=== PATIENT | female | born 1990 | race Caucasian/White ===

== ENCOUNTER → 2016-12-07 | Outpatient (CLI) | payer OTHER ==
[~2016-12-07] MED LIST: CALC600T21 PO; EFFE75CA75 PO; PRENTAB62 PO
--- NOTE | 2016-12-08 04:26 | REP ---
Clinical: Anatomical evaluation. Comparison: 11/11/2016 . Findings: Examination demonstrates a single live intrauterine in cephalic presentation. motion is identified by technologist. Placenta is noted posteriorly and grade zero without evidence for placenta previa or abruption. Amniotic fluid volume is normal. Cervix measures 2.6 cm in length and appears closed. No evidence for nuchal cord. Gestational age by LMP 24 weeks 1 day with XUAN 03/28/2017 . Gestational age by current measurements 24 weeks 4 days with XUAN 03/25/2017 . FHR equals 144 beats per minute. Estimated weight 735 grams ( 65th percentile). Anatomical assessment demonstrates normal structures including cranium, cavum, cerebellum/posterior fossa, facial features, lungs, four-chamber heart/ventricular outflow tracts, diaphragm, stomach, cord insertion/three-vessel cord, kidneys/bladder, spine, and extremities. Impression: Single live intrauterine in cephalic presentation demonstrating appropriate interval growth. In conjunction with prior examination anatomical assessment is complete and normal. Signed by Ed Gonzales MD 12/08/2016 04:18 A
== END ==
LOC: M RAD 12:30
PROVIDERS: ATTEND Obstetrics & Gynecology
DX: Z34.82 Encounter for supervision of other normal pregnancy, second trimester (principal); Z3A.24 24 weeks gestation of pregnancy

== ENCOUNTER → 2016-12-23 | Outpatient (CLI) | payer OTHER ==
[2016-12-23 12:49] LABS: MEAN CORPUSCULAR HEMOGLOBIN 26.7 pg (27.0-33.0); MEAN CORPUSCULAR HGB CONC 32.9 g/dl (32.0-36.5); MEAN CORPUSCULAR VOLUME 81.1 fl (80.0-96.0); RED CELL DISTRIBUTION WIDTH 14.8 % (11.5-14.5)
[2016-12-25 15:22] LABS: WHITE BLOOD COUNT 9.4 K/mm3 (4.0-10.0)
== END ==
LOC: M WUC 09:05
PROVIDERS: ATTEND Advanced Practice Midwife
DX: Z34.82 Encounter for supervision of other normal pregnancy, second trimester (principal)

== ENCOUNTER → 2017-01-12 | Outpatient (REF) | payer OTHER | LOC: M LAB REF 12:16 | PROVIDERS: ATTEND Obstetrics & Gynecology | DX: Z3A.28 28 weeks gestation of pregnancy (principal) ==

== ENCOUNTER 2017-02-07 17:09 | Outpatient (CLI) | payer OTHER ==
[~2017-02-07] VITALS: Ht 154.9 cm; Wt 98.0 kg
[2017-02-07 17:24] VITALS: BP 120/68
== END 2017-02-07 18:00 | disposition home or self-care (01) ==
LOC: M LDO 17:09
PROVIDERS: ATTEND Advanced Practice Midwife
DX: O26.893 Other specified pregnancy related conditions, third trimester (principal); Z3A.33 33 weeks gestation of pregnancy

== ENCOUNTER → 2017-03-02 | Outpatient (REF) | payer OTHER | LOC: M LAB REF 12:30 | PROVIDERS: ATTEND Advanced Practice Midwife | DX: Z34.83 Encounter for supervision of other normal pregnancy, third trimester (principal) ==

== ENCOUNTER 2017-03-25 05:15 | Inpatient (IN) | payer OTHER ==
[~2017-03-25] VITALS: Ht 152.4 cm; Wt 95.0 kg
[~2017-03-25 05:15] MED LIST changes: +TUMS500C PO
[2017-03-25 05:30] VITALS: BP 130/80
[2017-03-25] MEDS ORDERED: BICITRA 30ML SOLN UDC PO ONE ×2 (05:45→22:45)
[2017-03-25] MEDS ORDERED: LR 800 ML IV ONE (05:45)
[2017-03-25] MEDS ORDERED: LR 1,000 ML IV SCH ×2 (06:30→09:05)
[2017-03-25 06:35] LABS: BASO % 0.3 % (0.0-1.0); EOS # 0.1 K/mm3 (0.0-0.50); LARGE UNSTAINED CELL # 0.2 K/mm3 (0.0-0.4); LYMPH # 1.7 K/mm3 (1.5-6.5); LYMPH % 15.2 % (24.0-44.0); MEAN CORPUSCULAR HEMOGLOBIN 24.6 pg (27.0-33.0); MEAN CORPUSCULAR VOLUME 76.8 fl (80.0-96.0); MONO # 0.4 K/mm3 (0.0-0.8); MONO % 4.3 % (0.0-5.0); NEUTROPHILS # 7.8 K/mm3 (1.8-7.7); NEUTROPHILS % 77.2 % (36.0-66.0); PLATELET COUNT, AUTOMATED 240 k/mm3 (150-450); RED CELL DISTRIBUTION WIDTH 15.8 % (11.5-14.5); WHITE BLOOD COUNT 10.1 K/mm3 (4.0-10.0)
[2017-03-25] MEDS ORDERED: MORPHINE PRES-FREE INJ 10 MG/10 ML VIAL (J2274) As Ordered ONE (07:34)
[2017-03-25] MEDS ORDERED: ONDANSETRON 4MG/2ML VIAL (J2405) As Ordered ONE (07:35)
[2017-03-25] MEDS ORDERED: OXYTOCIN INJ 10 UNITS/ML VIAL (J2590) As Ordered ONE (07:35)
[2017-03-25] MEDS ORDERED: GLYCOPYRROLATE INJ 0.2 MG/ML 2 ML VIAL As Ordered ONE (08:18)
[2017-03-25] MEDS ORDERED: ePHEDrine SULFATE 25 MG/5 ML(5MG/ML) SYRINGE As Ordered ONE ×2 (08:18→08:31)
[2017-03-25] MEDS ORDERED: METOCLOPRAMIDE INJ 10MG/2ML VIAL (J2765) IV PRN (08:21)
[2017-03-25] MEDS ORDERED: NALOXONE INJ 0.4 MG/1 ML VIAL (J2310) IV PRN ×2 (08:21)
[2017-03-25] MEDS ORDERED: ONDANSETRON 4MG/2ML VIAL (J2405) IV PRN ×2 (08:21→09:45)
[2017-03-25] MEDS ORDERED: NALBUPHINE HCL 10 MG/ML AMP (J2300) IV PRN (08:21)
[2017-03-25] MEDS ORDERED: KETOROLAC 60 MG/2 ML VIAL (J1885) As Ordered ONE (08:38)
[2017-03-25 08:43] LABS: CORD GAS ABE A -2.3; CORD GAS HCO3 A 24.9 MEQ/L; CORD GAS O2 SAT A 35.7 %; CORD GAS PCO2 A 52.1 mmHg; CORD GAS PH A 7.297 UNITS; CORD GAS PO2 A 19.6 mmHg; CORD GAS TCO2 A 26.5 MEQ/L
[2017-03-25 08:44] LABS: CORD GAS ABE V -1.4; CORD GAS HCO3 V 23.2 MEQ/L; CORD GAS O2 SAT V 73.7 %; CORD GAS PCO2 V 38.9 mmHg; CORD GAS PH V 7.394 UNITS; CORD GAS PO2 V 33.2 mmHg; CORD GAS SBC V 22.7 MEQ/L; CORD GAS TCO2 V 24.4 MEQ/L
[2017-03-25] MEDS ORDERED: MEASLES,MUMPS,RUBELLA VACCINE INJ (MMR-II) (90707) SC SCH (09:15)
[2017-03-25] MEDS ORDERED: RHOGAM 300 MCG (1500 IU) INJ (J2790) IM SCH (09:15)
[2017-03-25] MEDS ORDERED: PERCOCET 5MG/325MG TAB PO PRN (09:45)
[2017-03-25] MEDS: fentaNYL 100 MCG/2 ML INJECTION (J3010) IV PRN ×2 (10:07→10:15)
[2017-03-25 11:15] VITALS: BP 141/62
[2017-03-25 11:53] VITALS: BP 125/69
[2017-03-25 13:09] VITALS: BP 135/69
[2017-03-25] MEDS: NORCO, ANEXSIA 5/325MG TABLET (HYDROcodone/ACETAMINOPHEN) PO PRN ×2 (13:44→23:29)
[2017-03-25 14:08] VITALS: BP 115/59
--- NOTE | 2017-03-25 14:20 | RO ---
DATE OF PROCEDURE: 03/25/2017 Sera is a 27-year-old female 6, para 3 0-3 with a history of three prior sections being admitted for elective repeat section. The patient also desires permanent tubal sterilization. After counseling in the office we did proceed did agree to proceed with a repeat section, bilateral tubal ligation and possible revision of old scar. PREOPERATIVE DIAGNOSIS: 1. Term for an elective repeat section times four. 2. Desires permanent tubal sterilization. POSTOPERATIVE DIAGNOSIS: 1. Term for an elective repeat section times four. 2. Desires permanent tubal sterilization. 3. Extensive bladder adhesions to the lower uterine segment. PROCEDURE: 1. Bilateral tubal ligation using Filshie clip. 2. Lysis of adhesion. 3. Retrograde filling of the bladder. GUM SPRAYER: Na Julian ANESTHESIA: Spinal. COMPLICATIONS: None. ESTIMATED BLOOD LOSS: 500 mL. FINDINGS: Live female in right occiput transverse position. scores 9 and 9. weight 8 pounds 1 ounce. Normal-appearing placenta with a very thin lower uterine segment and a window at the left side of the uterus. After obtaining informed consent the patient was taken to the operating room where spinal anesthetic was found to be adequate. She was then draped and prepped usual sterile fashion in supine position. At this point, a elliptical incision was made over her old scar, this was carried down to the fascia. The old scar was removed. The incision was carried through laterally. The inferior aspect of the fascia were grasped with Leyla clamps, tented off and dissected off the rectus muscles sharply. The superior aspect was dissected off in a similar fashion. Rectus muscles midline fashion. Perineum identified. Peritoneal cavity entered bluntly. Superior and inferior dissection of the peritoneum was then done with good visualization of the bladder. At this point a Mobius skin retractor was placed at the large lower uterine segment window was noted as well as the bladder adherent to the lower uterine segment and incision was made high in the lower uterine segment. The infant was delivered in atraumatic fashion. Nose and mouth bulb suctioned. Cord doubly clamped and cut and infant was handed to the waiting warmer. Cord blood and cord gas were sent. Placenta removed manually. Uterus cleared of all clot and debris. Uterine incision was then repaired in two separate layers of 0 Vicryl suture. The bladder was found to be very adherent to the lower uterine segment. This was taken down with a series of sharp and blunt dissection. After freeing the bladder up we then retrograde filled the bladder with normal saline to rule out any evidence of laceration to the bladder, none were found, bladder was within normal limit. At this point, attention was turned to the fallopian tube which the fimbriated end was identified and the Filshie clip was applied approximately 2-3 cm away from the cornual end of each tube. Pelvis copiously irrigated with normal saline and suctioned out. Attention turned to the peritoneum which was closed using 2-0 Vicryl in a running fashion. Fascia closed in two separate segment of 0 Vicryl sutures . Superficial bleeders coagulated and the skin was reapproximated in subcuticular fashion using 3-0 Vicryl in a Daniel. Steri-Strips placed. The patient tolerated procedure well. She was then transferred to recovery room in stable condition.
[2017-03-25] MEDS: IBUPROFEN 800 MG TAB PO SCH (17:06)
[2017-03-25 18:43] VITALS: BP 129/74
[2017-03-26] MEDS: IBUPROFEN 800 MG TAB PO SCH ×3 (01:00→17:55)
[2017-03-26 01:38] VITALS: BP 113/55
[2017-03-26 06:06] VITALS: BP 115/54
[2017-03-26] MEDS: NORCO, ANEXSIA 5/325MG TABLET (HYDROcodone/ACETAMINOPHEN) PO PRN ×4 (06:31→20:16)
[2017-03-26 06:54] LABS: MEAN CORPUSCULAR HGB CONC 31.8 g/dl (32.0-36.5); MEAN CORPUSCULAR VOLUME 78.6 fl (80.0-96.0); WHITE BLOOD COUNT 8.9 K/mm3 (4.0-10.0)
[2017-03-26] MEDS: PRENATAL VITAMIN TAB PO SCH (08:18)
[2017-03-26] MEDS ORDERED: PERCOCET PO (08:40)
[2017-03-26 10:38] VITALS: BP 129/68
[2017-03-26 14:00] VITALS: BP 139/69
[2017-03-26 18:00] VITALS: BP 129/82
[2017-03-26 22:00] VITALS: BP 129/61
[2017-03-27] MEDS: IBUPROFEN 800 MG TAB PO SCH ×3 (01:00→17:07)
[2017-03-27] MEDS: NORCO, ANEXSIA 5/325MG TABLET (HYDROcodone/ACETAMINOPHEN) PO PRN ×3 (05:37→15:16)
[2017-03-27 05:48] VITALS: BP 138/71
[2017-03-27] MEDS: PRENATAL VITAMIN TAB PO SCH (08:18)
--- NOTE | 2017-03-27 11:09 | IPNPDOC ---
Progress Note Date of Service The patient was seen on 03/27/17 at 11:03. Progress Note SUBJECTIVE: Patient reports that she would like to stay for 1 more day. C/o pain in her tailbone and back. Voiding without difficulty. Ambulating. without difficulty. OBJECTIVE: PHYSICAL EXAMINATION: VITAL SIGNS: Please see below. LUNGS: Regular rate. No use of accessory muscles. BREAST EXAMINATION: Soft and nontender. SECTION INCISION: Edges approximated. No drainage. Steri strips present. EXTREMITIES: Bilateral lower extremities, generalized edema, no erythema. CURRENT LABS: Please see below. ASSESSMENT: Day 2 Postoperative PLAN: Continue with supportive nursing care. Anticipate discharge tomorrow. Encouraged patient to change positions frequently. VS, I&O, 24H, Fishbone Vital Signs/I&O Vital Signs Date Time Temp Pulse Resp B/P (MAP) Pulse Ox O2 Delivery O2 Flow Rate FiO2 03/27/17 10:42 18 03/27/17 09:41 Room Air 03/27/17 05:48 97.2 91 138/71 (93) 03/26/17 22:00 100 I&O- Last 24 Hours up to 6 AM 03/27/17 06:00 Intake Total 600 ml Balance 600 ml LYNETTE BURDICK CNM March 27, 2017 11:09
[2017-03-27 18:12] VITALS: BP 126/84
[2017-03-28] MEDS: IBUPROFEN 800 MG TAB PO SCH ×2 (00:44→07:58)
[2017-03-28 05:42] VITALS: BP 134/70
[2017-03-28] MEDS: NORCO, ANEXSIA 5/325MG TABLET (HYDROcodone/ACETAMINOPHEN) PO PRN ×2 (06:19→10:17)
[2017-03-28] MEDS: PRENATAL VITAMIN TAB PO SCH (07:58)
--- NOTE | 2017-03-28 10:27 | DS.PDOC ---
Discharge Summary General Date of Admission March 25, 2017 at 05:15 Date of Discharge 03/28/2017 Attending Physician: Andreas Liang DO Discharge Summary PROCEDURES PERFORMED DURING STAY: Repeat low-transverse section with permanent tubal sterilization. ADMITTING DIAGNOSES: 1. term . 2. Elective repeat section. 3. Desires permanent tubal sterilization. DISCHARGE DIAGNOSES: 1. Day 3 postoperative. COMPLICATIONS/CHIEF COMPLAINT: Previous Section. HISTORY OF PRESENT ILLNESS: Patient is a 27 year old female who is now a with an XUAN of 03/28/17. She was scheduled for a repeat section with a history of 3 prior sections. She desired permanent sterilization. She initiated care in her first trimester at [facility]. Her has been uncomplicated. She does have a history of eclampsia with her 1st in 2010. She also has been diagnosed with a brain tumor, which has not been causing any harm or changes to the patient. DISCHARGE MEDICATIONS: [place] sent to pharmacy from office. Motrin, Tylenol, PNV OTC with no scripts. ALLERGIES: Please see below. PHYSICAL EXAMINATION ON DISCHARGE: VITAL SIGNS: Please see below. RESPIRATORY EXAMINATION: Rate regular. No use of accessory muscles. ABDOMINAL EXAMINATION: Low transverse incision: edges approximated. No drainage. Clean. Steri strips present. EXTREMITIES: Bilateral lower extremities with generalized edema. LABORATORY DATA: Please see below. ACTIVITY: As tolerated. DIET: Regular. DISCHARGE INSTRUCTIONS: 1. Follow up with scheduled appointments, which have already been schedule for patient. 2. Reviewed mastitis, endometritis, hemorrhage, infection at incision site, DVT , pulmonary embolism, pain management, pelvic rest, and breast care with patient. She is to contact office with any of these symptoms or complications. DISCHARGE CONDITION: Stable. Vital Signs/I&Os Vital Signs Date Time Temp Pulse Resp B/P (MAP) Pulse Ox O2 Delivery O2 Flow Rate FiO2 03/28/17 07:07 16 03/28/17 05:42 98.3 87 134/70 (91) 03/27/17 15:16 Room Air 03/26/17 22:00 100 Discharge Medications Scheduled PRN Calcium Carbonate (Tums) 500 Mg Chw, 500 MG PO PRN PRN for HEARTBURN, (Reported) Oxycodone/Acetaminophen (Percocet 5MG/325MG Tablet) 1 Tab Tab, 1 TAB PO Q4HP PRN for ABDOMINAL PAIN Allergies Coded Allergies: Horse Allergy (Verified Allergy, Intermediate, 03/25/17) Rabbit Epithelium (Verified Allergy, Intermediate, 03/25/17) LYNETTE BURDICK CNM March 28, 2017 10:27
[2017-03-28] MEDS ORDERED: PREN27TA3 PO (10:40)
[2017-03-28] MEDS ORDERED: MOTR200T44 PO (10:40)
== END 2017-03-28 11:37 | disposition home or self-care (01) | DRG 540 ==
LOC: M LDI 05:15 → M OBS 10:29
PROVIDERS: ADMIT Obstetrics & Gynecology; ATTEND Obstetrics & Gynecology
PROC: 0UL70DZ Occlusion of Bilateral Fallopian Tubes with Intraluminal Device, Open Approach (ICD-10-PCS; 2017-03-25)
PROC: 10D00Z1 Extraction of Products of Conception, Low, Open Approach (ICD-10-PCS; principal; 2017-03-25 07:30)
DX: O34.211 Maternal care for low transverse scar from previous cesarean delivery (principal); Z37.0 Single live birth; Z3A.39 39 weeks gestation of pregnancy; D49.6 Neoplasm of unspecified behavior of brain

== ENCOUNTER 2017-07-05 08:43 | Emergency (ER) | payer OTHER ==
[~2017-07-05] VITALS: Ht 154.9 cm; Wt 84.1 kg
[~2017-07-05 08:43] MED LIST changes: -CALC600T21 PO; +CALC600T60 PO; +MOTR200T44 PO; +PERCOCET PO; +PREN27TA3 PO
[2017-07-05] MEDS ORDERED: KETOROLAC 30 MG/ML VIAL (J1885) IV ONE (09:30)
[2017-07-05] MEDS ORDERED: METOCLOPRAMIDE INJ 10MG/2ML VIAL (J2765) IV ONE (09:30)
[2017-07-05 09:56] LABS: BASO % 0.4 % (0.0-1.0); EOS # 0.1 K/mm3 (0.0-0.50); LARGE UNSTAINED CELL # 0.1 K/mm3 (0.0-0.4); LARGE UNSTAINED CELL % 1.7 % (0.0-4.0); LYMPH # 1.4 K/mm3 (1.5-6.5); LYMPH % 23.9 % (24.0-44.0); MEAN CORPUSCULAR HEMOGLOBIN 23.6 pg (27.0-33.0); MEAN CORPUSCULAR HGB CONC 32.1 g/dl (32.0-36.5); MEAN CORPUSCULAR VOLUME 73.5 fl (80.0-96.0); MONO # 0.2 K/mm3 (0.0-0.8); MONO % 4.2 % (0.0-5.0); NEUTROPHILS # 3.8 K/mm3 (1.8-7.7); NEUTROPHILS % 68.8 % (36.0-66.0); PLATELET COUNT, AUTOMATED 230 k/mm3 (150-450); RED CELL DISTRIBUTION WIDTH 15.9 % (11.5-14.5); WHITE BLOOD COUNT 5.6 K/mm3 (4.0-10.0)
[2017-07-05 10:25] LABS: ANION GAP 11 MEQ/L (8-16); BLOOD UREA NITROGEN 13 MG/DL (7-18); CALCIUM LEVEL 8.7 MG/DL (8.5-10.1); CARBON DIOXIDE LEVEL 25 MEQ/L (21-32); CHLORIDE LEVEL 105 MEQ/L (98-107); CREATININE FOR GFR 1.02 MG/DL (0.55-1.02); GLOMERULAR FILTRATION RATE > 60.0 (>60); GLUCOSE, FASTING 102 MG/DL (70-105); HCG, SERUM QUANTITATIVE < 1.0 MIU/ML; POTASSIUM SERUM 3.9 MEQ/L (3.5-5.1); SODIUM LEVEL 141 MEQ/L (136-145)
[2017-07-05] MEDS ORDERED: REGL10TA6 PO (11:31)
[2017-07-05] MEDS ORDERED: IBUP-1022 PO (11:31)
[2017-07-05] MEDS ORDERED: NORCOTAB PO (11:31)
[2017-07-05 11:50] VITALS: BP 119/68
--- NOTE | 2017-07-05 12:27 | REP ---
CT ABDOMEN PELVIS WITHOUT IV OR ORAL CONTRAST: Renal stone protocol. HISTORY: Left flank pain. COMPARISON STUDY: October 21, 2015. FINDINGS: Preliminary digital regional safety manager radiograph demonstrates tubal ligation clamps bilaterally in the pelvis. Bowel gas pattern is normal. The lung bases are clear. No pleural effusion or upper abdominal ascites seen. The liver and the spleen are normal in size homogeneous in texture. Gallbladder and the pancreas are unremarkable. No adrenal lesion is seen. There is moderate hydronephrosis and hydroureter affecting the left side. The hydronephrosis is traced into the pelvis several centimeters above the left ureteral vesicle junction where there is a 3 mm distal ureteral calculus. There are bilateral intrarenal calculi. In the left mid kidney, there is a 5 mm calculus. In the right kidney lower pole there is a 3 mm calculus. No right-sided hydronephrosis is seen. Tubal ligation clamps are seen in the pelvis. No abdominal wall defect is seen. No bony destructive lesion is appreciated. IMPRESSION: Moderate left-sided hydronephrosis and hydroureter. There is evidence of a 3 mm left distal ureteral calculus several centimeters above the ureterovesical junction. There is bilateral intrarenal nephrolithiasis. No other significant abnormality. Signed by Roscoe Mckinley MD 07/05/2017 02:47 P
== END 2017-07-05 11:52 | disposition home or self-care (01) ==
LOC: M ED 08:43
DX: N20.1 Calculus of ureter (principal)
CPT/HCPCS: 74176; 80048; 81001; 84702; 85025; 86140; 87086; 96374; 96375; 99283; J1885; J2765

== ENCOUNTER → 2019-08-02 | Outpatient (REF) | payer OTHER ==
[~2019-08-02] MED LIST changes: +EFFE75CA2 PO; -EFFE75CA75 PO; +HYDR-3715 PO; +IBUP-1022 PO; +REGL10TA6 PO; +ZOFR4TAB16 PO
== END ==
LOC: M LAB REF 19:01
PROVIDERS: ATTEND Physician Assistant
DX: R19.7 Diarrhea, unspecified (principal)

== ENCOUNTER 2019-08-08 08:47 | Emergency (ER) | payer OTHER, SELFPAY ==
[~2019-08-08] VITALS: Ht 152.4 cm; Wt 59.4 kg
[~2019-08-08 08:47] MED LIST changes: -ZOFR4TAB16 PO
[2019-08-08 08:48] VITALS: BP 119/77
[2019-08-08] MEDS ORDERED: ZOFR4TAB16 PO (08:54)
--- NOTE | 2019-08-08 10:47 | ED PDOC ---
Post-Departure Follow-Up ASSIGNED MYSELF TO THIS PT. REGISTRATION WENT TO SEE PT FIRST AND PT DISCOVERED HER INSURANCE WAS NOT ACTIVE. AT THIS TIME, PT ASKING TO LEAVE. PT WAS NOT SEEN BY THIS CERTIFIED TEACHER ASSISTANT, WAS NOT SEEN BY A PROVIDER. PT SIGNED OUT BEFORE BEING SEEN, AMA PAPERWORK WAS SIGNED BY PT AND NURSING STAFF. JOSE BURGESS PA-C Aug 08, 2019 10:47
== END 2019-08-08 10:51 | disposition left against medical advice (07) ==
LOC: M ED 08:47
DX: Z53.21 Procedure and treatment not carried out due to patient leaving prior to being seen by health care provider (principal)

== ENCOUNTER → 2019-09-08 | Outpatient (CLI) | payer OTHER ==
[~2019-09-08] MED LIST changes: +PROHANCE 279.3MG/ML 5ML VIAL (A9576) As Ordered ONE; +ZOFR4TAB16 PO
--- NOTE | 2019-09-08 13:23 | REP ---
MRI brain: 09/08/2019. Indication: Meningioma. Comparison: 07/06/2016. Technique: New multiplanar short and long TR sequences of the brain were obtained including 10 ml of IV ProHance. Findings: There has been a significant increase size of the dural based left frontotemporal mass including significantly increased adjacent vasogenic edema. Cystic components are now noted which show peripheral enhancement. The mass now measures 4.7 X 3.8 X 3.9 cm. Mass effect , causes mild leftward shift of the midline structures. No areas of restricted diffusion are present to suggest an acute infarction. The large intracranial flow voids are present. There is no hydrocephalus. Impression: Significant change in the size and MRI intensity/configuration of the right frontotemporal extra-axial mass as described. Mild rightward shift of the midline structures without trapping. The findings were conveyed to Markham's office at the time of dictation. Electronically Signed by Kahlil Foreman DO 09/08/2019 01:15 P
== END ==
LOC: M RAD 10:25
PROVIDERS: ATTEND Neurological Surgery
DX: D32.9 Benign neoplasm of meninges, unspecified (principal)
CPT/HCPCS: 70553; A9576

== ENCOUNTER → 2020-05-28 | Outpatient (CLI) | payer OTHER ==
[~2020-05-28] MED LIST changes: +DIFL150T PO; +FLAG500T PO; +IBUP80TA PO; -PROHANCE 279.3MG/ML 5ML VIAL (A9576) As Ordered ONE
--- NOTE | 2020-05-28 10:17 | REPVR ---
PROCEDURE INFORMATION: Exam: MR Head Without Contrast Exam date and time: 05/28/2020 8:45 AM Age: 30 years old Clinical indication: Condition or disease; Brain tumor; Benign neoplasm of brain; Prior surgery; Surgery date: 6+ months; Surgery type: Resection of tumor; Patient HX: S/P SX for benign meiningioma, >5 months ago, PT refused contrast at this time; Additional info: F/u meningioma TECHNIQUE: Imaging protocol: MR of the head without contrast. COMPARISON: MRI-Brain W/O FOLL BY WITH 09/08/2019 11:50 AM FINDINGS: Brain: Postoperative changes involve the right temporal lobe, with focal fluid underlying the craniotomy flap and parenchymal volume loss. There is minimal hemorrhage along the margins of the cavity. There is no mass effect or midline shift. Normal parenchymal signal is otherwise preserved. Ventricles: Normal. No ventriculomegaly. Bones/joints: There are right temporal craniotomy changes. Sinuses: Normal as visualized. No acute sinusitis. Mastoid air cells: Normal as visualized. No mastoid effusion. Orbits: Unremarkable. Soft tissues: Unremarkable. IMPRESSION: Interval resection of the right temporal lobe meningioma, with expected postoperative change there is no overt residual or recurrent tumor, although assessment is limited by the lack of IV contrast material. Electronically signed by: Raquel Mariscal On 05/28/2020 10:17:21 AM
== END ==
LOC: M RAD 05-15 07:23
PROVIDERS: ATTEND Neurological Surgery
DX: D32.9 Benign neoplasm of meninges, unspecified (principal)

== ENCOUNTER 2020-08-16 16:38 | Emergency (ER) | payer OTHER ==
[~2020-08-16] VITALS: Ht 152.4 cm; Wt 63.2 kg
[~2020-08-16 16:38] MED LIST changes: -DIFL150T PO; -FLAG500T PO; -IBUP80TA PO
[2020-08-16 17:18] LABS: BASO % 0.3 % (0.0-1.0); EOS % 0.5 % (0.0-3.0); HEMATOCRIT 41.2 % (36.0-47.0); HEMOGLOBIN 13.8 g/dl (12.0-15.5); LYMPH # 1.6 10^3/uL (1.5-5.0); LYMPH % 18.5 % (24.0-44.0); MEAN CORPUSCULAR HEMOGLOBIN 27.5 pg (27.0-33.0); MEAN CORPUSCULAR HGB CONC 33.5 g/dl (32.0-36.5); MEAN CORPUSCULAR VOLUME 82.1 fl (80.0-96.0); MONO # 0.3 10^3/uL (0.0-0.8); MONO % 3.4 % (0.0-5.0); NEUTROPHILS # 6.6 10^3/uL (1.5-8.5); NEUTROPHILS % 76.8 % (36.0-66.0); PLATELET COUNT, AUTOMATED 223 10^3/uL (150-450); RED BLOOD COUNT 5.02 10^6/uL (4.00-5.40); WHITE BLOOD COUNT 8.6 10^3/uL (4.0-10.0)
[2020-08-16] MEDS ORDERED: KETOROLAC 30 MG/ML 1ML VIAL IV ONE (17:30)
[2020-08-16] MEDS ORDERED: NS 1,000 ML IV ONE (17:30)
[2020-08-16 17:38] LABS: BLOOD UREA NITROGEN 10 MG/DL (7-18); CALCIUM LEVEL 8.8 MG/DL (8.5-10.1); CARBON DIOXIDE LEVEL 25 MEQ/L (21-32); CHLORIDE LEVEL 108 MEQ/L (98-107); CREATININE FOR GFR 0.75 MG/DL (0.55-1.30); GLOMERULAR FILTRATION RATE > 60.0 (>60); GLUCOSE, FASTING 95 MG/DL (70-100); POTASSIUM SERUM 3.8 MEQ/L (3.5-5.1); SODIUM LEVEL 139 MEQ/L (136-145)
[2020-08-16] MEDS ORDERED: MORPHINE 4 MG/ML 1ML VIAL/SYRINGE (J2270) IV ONE (18:45)
--- NOTE | 2020-08-16 19:17 | REPVR ---
PROCEDURE INFORMATION: Exam: US Pelvis Complete, Transabdominal and US Pelvis, Transvaginal and US Duplex Artery and Vein, Ovaries, Complete Exam date and time: 08/16/2020 5:56 PM Age: 30 years old Clinical indication: Pelvic pain; Prior surgery; Surgery date: 6+ months; Surgery type: Multiple c section, tubal ligation; Additional info: Rlq pain, lower, PT tender, clots vag bleeding TECHNIQUE: Imaging protocol: Real-time transabdominal and transvaginal pelvic ultrasound (complete) with image documentation. Transvaginal imaging was used for better evaluation of the endometrium and adnexa. Real-time duplex ultrasound scan of the arterial and venous flow of the ovaries with B-mode, color Doppler flow and spectral waveform analysis. COMPARISON: US PELVIC NON-OB COMPLETE 02/26/2016 7:19 PM FINDINGS: Uterus/cervix: The anteverted uterus has a lower transverse section scar. No myometrial mass is noted. The endometrial stripe is normal in appearance. The cervix is unremarkable. Right adnexa: The right ovary is normal in appearance. No right ovarian cyst or right adnexal mass is noted. The arterial and venous color Doppler flow and spectral waveforms within the right ovary are within normal limits, without evidence for right ovarian torsion. Left adnexa: The left ovary is normal in appearance. Incidental note is made of a 1.6 cm x 0.9 cm x 1.3 cm dominant follicular cyst in the left ovary. No left adnexal mass is noted. The arterial and venous color Doppler flow and spectral waveforms within the left ovary are within normal limits, without evidence for left ovarian torsion. Intraperitoneal space: No free fluid is seen from the images obtained. Urinary bladder: Unremarkable. Uterus size: 8.8 cm x 3.2 cm x 4.7 cm Endometrial stripe thickness: 3 mm Right ovary size: 3.8 cm x 1.5 cm x 2.3 cm. Right ovarian volume = 6.9 mL. Left ovary size: 2.9 cm x 2.1 cm x 2 cm. Left ovarian volume = 6.4 mL. IMPRESSION: Essentially normal ultrasound of the uterus and ovaries. No ovarian torsion. Electronically signed by: Nima Portillo On 08/16/2020 19:17:50 PM
[2020-08-16 19:20] VITALS: BP 137/98
[2020-08-16] MEDS ORDERED: IBUP80TA PO (19:43)
[2020-08-16] MEDS ORDERED: DIFL150T PO (19:43)
[2020-08-16] MEDS ORDERED: FLAG500T PO (19:43)
[2020-08-16] MEDS ORDERED: metroNIDAZOLE (FLAGYL) 500MG TABLET PO ONE (19:45)
== END 2020-08-16 20:12 | disposition home or self-care (01) ==
LOC: M ED 16:38
DX: R10.2 Pelvic and perineal pain (principal); N92.6 Irregular menstruation, unspecified; N85.4 Malposition of uterus; Z91.048 Other nonmedicinal substance allergy status
CPT/HCPCS: 36415; 76830; 76856; 80048; 81001; 84702; 85025; 86850; 86900; 86901; 87210; 93976; 96361; 96374; 96375; 99284; J1885; J2270

== ENCOUNTER → 2020-09-20 | Outpatient (REF) | payer OTHER ==
[~2020-09-20] MED LIST changes: +DIFL150T PO; +FLAG500T PO; +IBUP80TA PO
== END ==
LOC: M LAB REF 16:06
PROVIDERS: ATTEND Physician Assistant
DX: N92.1 Excessive and frequent menstruation with irregular cycle (principal)

== ENCOUNTER → 2020-11-04 | Outpatient (REF) | payer OTHER ==
[~2020-11-04] MED LIST changes: +ACET-897 PO
== END ==
LOC: M LAB REF 16:25
PROVIDERS: ATTEND Physician Assistant Medical
DX: Z11.59 Encounter for screening for other viral diseases (principal)

== ENCOUNTER 2020-11-06 13:15 | Emergency (ER) | payer OTHER ==
[~2020-11-06] VITALS: Ht 152.4 cm; Wt 61.0 kg
[~2020-11-06 13:15] MED LIST changes: -ACET-897 PO
[2020-11-06] MEDS ORDERED: KETOROLAC 30 MG/ML 1ML VIAL IV ONE (14:45)
[2020-11-06] MEDS ORDERED: NS 1,000 ML IV ONE ×2 (14:45→16:45)
[2020-11-06] MEDS ORDERED: METOCLOPRAMIDE INJ 10MG/2ML VIAL (J2765 PER 1) IV ONE (14:45)
--- NOTE | 2020-11-06 15:23 | REP ---
INDICATION: SOB on exertion COMPARISON: 07/06/2016 TECHNIQUE: PA and lateral. FINDINGS: The mediastinum and cardiac silhouette are normal. The lung bell are clear and without acute consolidation, effusion, or pneumothorax. The skeletal structures are intact and normal. IMPRESSION: No acute cardiopulmonary process. <Electronically signed by Ed Gonzales > 11/06/20 [id number]
[2020-11-06 15:37] LABS: HEMATOCRIT 43.1 % (36.0-47.0); MEAN CORPUSCULAR HEMOGLOBIN 27.5 pg (27.0-33.0); MEAN CORPUSCULAR HGB CONC 32.5 g/dl (32.0-36.5); MEAN CORPUSCULAR VOLUME 84.5 fl (80.0-96.0); PLATELET COUNT, AUTOMATED 201 10^3/uL (150-450); WHITE BLOOD COUNT 5.9 10^3/uL (4.0-10.0)
[2020-11-06 16:17] LABS: ALBUMIN 4.2 GM/DL (3.2-5.2); ALT/SGPT 25 U/L (12-78); BILIRUBIN,DIRECT < 0.1 MG/DL (0.0-0.2); BILIRUBIN,TOTAL 0.6 MG/DL (0.2-1.0); BLOOD UREA NITROGEN 5 MG/DL (7-18); CALCIUM LEVEL 9.2 MG/DL (8.5-10.1); CARBON DIOXIDE LEVEL 26 MEQ/L (21-32); CHLORIDE LEVEL 107 MEQ/L (98-107); CK-MB VALUE MASS < 1.0 NG/ML (<3.6); CPK CREATINE PHOSPHOKINASE 94 U/L (26-192); GLOMERULAR FILTRATION RATE > 60.0 (>60); GLUCOSE, FASTING 88 MG/DL (70-100); MB/CK RELATIVE INDEX 1.06 (< OR =4); POTASSIUM SERUM 3.9 MEQ/L (3.5-5.1); SODIUM LEVEL 139 MEQ/L (136-145); TOTAL PROTEIN 7.5 GM/DL (6.4-8.2); TROPONIN I < 0.02 NG/ML (< 0.10)
[2020-11-06] MEDS ORDERED: LIDOCAINE 5% (LIDODERM) PATCH TD ONE (16:45)
[2020-11-06] MEDS ORDERED: **NOTE PATIENT COMMENT** MISC XX ONE (16:45)
[2020-11-06] MEDS ORDERED: ISOVUE-370 76% 100ML VIAL As Ordered ONE (16:48)
--- NOTE | 2020-11-06 17:13 | REP ---
INDICATION: severe headaches. COMPARISON: None. TECHNIQUE: CT contrast dose: 100 ml of intravenous Isovue 370. Axial precontrast and contrast-enhanced images from the skull base to the vertex with coronal reformations. FINDINGS: Vasquez-white differentiation is maintained. Ventricles are symmetric and normal. No acute intracranial hemorrhage, mass or mass effect. No acute extra-axial fluid collection. Area of encephalomalacia along the right temporal lobe and overlying craniotomy consistent with prior event. Sinuses are clear. IMPRESSION: Evidence for prior right craniotomy and underlying encephalomalacia. No acute intracranial pathology appreciated. <Electronically signed by Ed Gonzales > 11/06/20 [id number]
--- NOTE | 2020-11-06 17:15 | REP ---
INDICATION: ? pe COMPARISON: None. TECHNIQUE: Axial contrast enhanced images from the thoracic inlet to the upper abdomen using pulmonary embolus technique with multiplanar re-formations. 75 ml Isovue 370 intravenous contrast material administered without complication. This CT examination was performed using the following dose reduction techniques: Automated exposure control, adjustment of mA and/or kv according to the patient's size, and use of iterative reconstruction technique. FINDINGS: Satisfactory enhancement of the pulmonary vasculature is achieved and no filling defects are identified to suggest pulmonary embolus. Further evaluation of the mediastinum demonstrates normal thoracic aorta, heart and pericardium. The bilateral lung bell are well aerated and clear without consolidation pleural effusion or pneumothorax. Tracheobronchial tree is patent. No nodule or mass lesion is identified. No adenopathy noted. Surrounding musculoskeletal structures intact IMPRESSION: No evidence for pulmonary embolus. No acute mediastinal or pleural parenchymal process. <Electronically signed by Ed Gonzales > 11/06/20 [id number]
[2020-11-06] MEDS ORDERED: ACET-897 PO (17:46)
[2020-11-06] MEDS ORDERED: ZOFR4TAB16 PO (17:48)
[2020-11-06 18:09] VITALS: BP 126/82
[2020-11-07] MEDS ORDERED: **NOTE PATIENT COMMENT** MISC XX ONE (05:00)
--- NOTE | 2020-11-07 13:32 | ECGEPIP ---
[facility] - ED Test Date: 2020-11-06 Pat Name: BLOSSOM ROBERSON Department: Room: - Gender: Female Clinical Professor: ELIZABETH : 1990 Requested By: KIMBERLY Healy PA-C Order Number: [id number] Reading MD: Tianna Patricio Measurements Intervals Edgar Rate: 58 P: 74 IL: 138 QRS: 77 QRSD: 98 T: 78 QT: 410 QTc: 406 Interpretive Statements SINUS BRADYCARDIA DECREASED RATE 07/06/16 Electronically Signed on 11-07-2020 13:32:06 EST by Tianna Patricio
== END 2020-11-06 18:11 | disposition home or self-care (01) ==
LOC: M ED 13:15
DX: G44.219 Episodic tension-type headache, not intractable (principal); J30.89 Other allergic rhinitis
CPT/HCPCS: 70470; 71046; 71275; 80048; 80076; 81001; 82550; 82553; 84702; 85027; 85379; 86140; 93005; 96361; 96374; 96375; 99284; J1885; J2765; Q9967

== ENCOUNTER → 2020-11-13 | Outpatient (CLI) | payer OTHER ==
[~2020-11-13] MED LIST changes: +ACET-897 PO; +PROHANCE 279.3MG/ML 15ML VIAL As Ordered ONE
--- NOTE | 2020-11-13 19:28 | REPVR ---
PROCEDURE INFORMATION: Exam: MR Head Without and With Contrast Exam date and time: 11/13/2020 5:52 PM Age: 30 years old Clinical indication: Condition or disease; Brain tumor; Neoplasm of brain, not specified; Prior surgery; Surgery date: 6+ months; Additional info: Meingioma TECHNIQUE: Imaging protocol: MR of the head without and with intravenous contrast. Contrast material: PROHANCE; Contrast volume: 11 ml; Contrast route: INTRAVENOUS (IV); COMPARISON: MRI-Brain without Contrast 05/28/2020 8:11 AM FINDINGS: Ventricles demonstrate normal size and configuration. Major vascular flow voids at the skull base are preserved. Stable appearance of right temporal resection. No midline shift or intracranial mass effect. No cerebral edema. No diffusion restriction. No pathologic intracranial enhancement. Visualized paranasal sinuses and mastoid air cells are clear. IMPRESSION: 1. No acute intracranial abnormality. 2. Stable right temporal resection without evidence of residual or recurrent neoplasia. Electronically signed by: Ozzie Hermosillo On 11/13/2020 19:28:21 PM
== END ==
LOC: M RAD 15:54
PROVIDERS: ATTEND Neurological Surgery
DX: D32.9 Benign neoplasm of meninges, unspecified (principal)
CPT/HCPCS: 70553; A9576

== ENCOUNTER → 2020-12-26 | Outpatient (REF) | payer OTHER ==
[~2020-12-26] MED LIST changes: -PROHANCE 279.3MG/ML 15ML VIAL As Ordered ONE
[2020-12-26 18:47] LABS: INFLUENZA A AMPLIFICATION NEGATIVE (NEGATIVE); INFLUENZA B AMPLIFICATION NEGATIVE (NEGATIVE)
== END ==
LOC: M LAB REF 16:42
PROVIDERS: ATTEND Physician Assistant
DX: R50.9 Fever, unspecified (principal)

== ENCOUNTER → 2021-09-12 | Outpatient (CLI) | payer OTHER ==
[~2021-09-12] MED LIST changes: +PROHANCE 279.3MG/ML 15ML VIAL As Ordered ONE
--- NOTE | 2021-09-13 19:52 | REPVR ---
PROCEDURE INFORMATION: Exam: MR Head Without and With Contrast Exam date and time: 09/12/2021 6:47 PM Age: 31 years old Clinical indication: Condition or disease; Brain tumor; Benign neoplasm of brain; Prior surgery; Surgery date: 6+ months; Surgery type: Removal of the meningioma; Additional info: F/u meningioma TECHNIQUE: Imaging protocol: MR of the head without and with intravenous contrast. Contrast material: PROHANCE; Contrast volume: 12 ml; Contrast route: INTRAVENOUS (IV); COMPARISON: MRI-Brain W/O FOLL BY WITH 11/13/2020 5:06 PM FINDINGS: Brain: Small focus of chronic encephalomalacia change along the right frontal operculum in region of chronic postoperative site. No evidence of recurrent intracranial mass. Small foci of susceptibility artifact along the margins of the resection site in the right frontal operculum, most likely reflecting chronic hemosiderin deposition. No evidence of acute intracranial hemorrhage or extra-axial fluid collection. No evidence of mass effect or midline shift. No restricted diffusion to suggest acute infarct. Cerebral ventricles: Ventricles, cisterns, and sulci are normal. Bones/joints: Chronic right lateral craniotomy defect. Paranasal sinuses: Normal as visualized. No acute sinusitis. Mastoid air cells: No mastoid effusion. Orbital cavity: Unremarkable. Soft tissues: Unremarkable. IMPRESSION: 1. No acute intracranial findings. No evidence of recurrent intracranial mass. 2. Chronic findings, as above. Electronically signed by: Darryn Carcamo On 09/13/2021 19:52:24 PM
== END ==
LOC: M RAD 17:47
PROVIDERS: ATTEND Neurological Surgery
DX: D32.9 Benign neoplasm of meninges, unspecified (principal)
CPT/HCPCS: 70553; A9576

== ENCOUNTER 2022-03-16 11:19 | Day surgery (SDC) | payer OTHER ==
[~2022-03-16] VITALS: Ht 154.9 cm; Wt 68.0 kg
[~2022-03-16 11:19] MED LIST changes: +LR 1,000 ML IV ONE; -PROHANCE 279.3MG/ML 15ML VIAL As Ordered ONE; +ceFAZolin SOD 2 GM in IV 1 EA IV ONE
[2022-03-16 11:51] LABS: HEMATOCRIT 44.3 % (36.0-47.0); HEMOGLOBIN 14.9 g/dl (12.0-15.5); MEAN CORPUSCULAR HEMOGLOBIN 28.3 pg (27.0-33.0); MEAN CORPUSCULAR HGB CONC 33.6 g/dl (32.0-36.5); MEAN CORPUSCULAR VOLUME 84.1 fl (80.0-96.0); PLATELET COUNT, AUTOMATED 204 10^3/uL (150-450); RED BLOOD COUNT 5.27 10^6/uL (4.00-5.40); WHITE BLOOD COUNT 7.1 10^3/uL (4.0-10.0)
[2022-03-16] MEDS ORDERED: BUPIVACAINE HCL 0.25% 10ML VIAL As Ordered ONE (13:37)
[2022-03-16] MEDS ORDERED: fentaNYL 250 MCG/5 ML INJECTION As Ordered ONE (13:38)
[2022-03-16] MEDS ORDERED: MIDAZOLAM INJ 2MG/2ML VIAL (J2250 PER 1MG) As Ordered ONE (13:39)
[2022-03-16] MEDS ORDERED: IBUP-1022 PO (13:41)
[2022-03-16] MEDS ORDERED: OXYC1TAB23 PO (13:41)
[2022-03-16] MEDS ORDERED: ROCURONIUM BROMIDE 50 MG/5 ML VIAL As Ordered ONE (14:13)
[2022-03-16] MEDS ORDERED: propofoL 200 MG/20 ML VIAL As Ordered ONE (14:13)
[2022-03-16] MEDS ORDERED: dexameTHASONE 4 MG/ML 1ML VIAL (J1100 PER 1MG) As Ordered ONE (14:13)
[2022-03-16] MEDS ORDERED: LIDOCAINE 2% 100MG/5ML SDV (FOR ANES.) As Ordered ONE (14:13)
[2022-03-16] MEDS ORDERED: ACETAMINOPHEN 1000MG 100ML IV BTL (OFIRMEV) (J0131 PER 10MG) As Ordered ONE (14:31)
[2022-03-16] MEDS ORDERED: KETOROLAC 60MG 2ML VIAL As Ordered ONE (14:32)
[2022-03-16] MEDS ORDERED: ONDANSETRON 4MG/2ML VIAL As Ordered ONE ×2 (14:32→15:48)
[2022-03-16] MEDS ORDERED: SUGAMMADEX SODIUM 500 MG/5 ML VIAL (BRIDION) As Ordered ONE (14:35)
[2022-03-16] MEDS ORDERED: MEPERIDINE INJ 25 MG/ML VIAL (J2175) As Ordered ONE (15:48)
[2022-03-16] MEDS ORDERED: fentaNYL 100 MCG/2 ML INJECTION As Ordered ONE (15:48)
[2022-03-16] MEDS: fentaNYL 100 MCG/2 ML INJECTION IV PRN ×4 (16:20→16:43)
[2022-03-16] MEDS ORDERED: HYDROMORPHONE HCL 0.5 MG/ 0.5 ML SYRINGE (J1170 PER 1) IV PRN (16:20)
[2022-03-16] MEDS ORDERED: LR 1,000 ML IV SCH ×2 (16:20)
[2022-03-16] MEDS ORDERED: ONDANSETRON 4MG/2ML VIAL IV PRN ×2 (16:20)
[2022-03-16] MEDS ORDERED: PERCOCET 5MG/325MG TAB PO PRN (16:20)
[2022-03-16] MEDS: MEPERIDINE INJ 25 MG/ML VIAL (J2175) IV PRN ×2 (16:21→16:28)
[2022-03-16] MEDS: oxyCODONE 5MG TAB PO PRN ×2 (16:25→17:13)
[2022-03-16 18:15] VITALS: BP 120/80
[2022-03-16] MEDS ORDERED: DOCUSATE SODIUM 100MG CAPSULE PO SCH (21:00)
[2022-03-16] MEDS ORDERED: KETOROLAC 30 MG/ML 1ML VIAL IV PRN (21:30)
[2022-03-23] MEDS ORDERED: ONDA4TAB6 PO ×2 (09:05→09:20)
[2022-03-23] MEDS ORDERED: HYDR-3713 PO ×2 (09:06→09:20)
== END 2022-03-16 18:20 | disposition home or self-care (01) ==
LOC: M SDC 11:19
PROVIDERS: ATTEND Specialist
DX: N80.0 Endometriosis of uterus (principal); N88.8 Other specified noninflammatory disorders of cervix uteri; F33.9 Major depressive disorder, recurrent, unspecified; Z86.011 Personal history of benign neoplasm of the brain; J30.89 Other allergic rhinitis; Z87.891 Personal history of nicotine dependence
CPT/HCPCS: 36415; 58552; 81025; 85027; 86850; 86900; 86901; 88307; J0131; J0690; J1100; J1885; J2175; J2250; J2405; J3010; S2900

== ENCOUNTER 2025-06-25 11:01 | Emergency (ER) | payer MEDICARE, OTHER ==
[~2025-06-25] VITALS: Ht 152.4 cm; Wt 76.5 kg
[~2025-06-25 11:01] MED LIST changes: +HYDR-3713 PO; -LR 1,000 ML IV ONE; +ONDA-282 PO; +OXYC1TAB23 PO; -ceFAZolin SOD 2 GM in IV 1 EA IV ONE
[2025-06-25] MEDS ORDERED: SERTRALINE (11:22)
[2025-06-25] MEDS: KETOROLAC 30 MG/ML 1 ML VIAL IM ONE (14:34)
[2025-06-25 14:40] VITALS: BP 128/81; TEMP 99.4; O2SAT 100
== END 2025-06-25 14:46 | disposition home or self-care (01) ==
LOC: M ED 11:01
DX: M22.2X1 Patellofemoral disorders, right knee (principal); Z91.09 Other allergy status, other than to drugs and biological substances
CPT/HCPCS: 73564; 96372; 99284; J1885

== ENCOUNTER → 2025-09-21 | Outpatient (REF) | payer OTHER ==
[~2025-09-21] MED LIST changes: -IBUP-1022 PO; +IBUP600T42 PO; +SERTRALINE
== END ==
LOC: M LAB REF 12:17
PROVIDERS: ATTEND Physician Assistant
DX: J06.9 Acute upper respiratory infection, unspecified (principal)